=== PATIENT | female | born 1985 | race Caucasian/White ===

== ENCOUNTER 2022-02-23 17:38 | Emergency (ER) | payer MEDICAID, SELFPAY ==
[2022-02-23] VITALS (14 sets, daily range): BP systolic 108–129; BP diastolic 74–88; PULSE 73–86; RESP 14–22; TEMP 36.6–36.9; O2SAT 95–99; BMI 40.2
--- NOTE | 2022-02-23 17:33 | ECG_ITS ---
APPROVED REPORT Exam: Resting ECG HR:88 bpm ECG Measurements Heart Rate 88 AXES TX 151 P 22 QRSd 90 QRS 9 QT 354 T 7 QTc 399 Conclusion SINUS RHYTHM POSSIBLE RIGHT VENTRICULAR CONDUCTION DELAY [RSR (QR) IN V1/V2] BORDERLINE ECG UNCONFIRMED REPORT Electronically signed by : Abraham Babcock MD 02/24/2022 21:33:56
--- NOTE | 2022-02-23 18:03 | XR_ITS ---
PROCEDURE INFORMATION: Exam: XR Chest Exam date and time: 02/23/2022 6:54 PM Age: 36 years old Clinical indication: Patient HX: Nausea and vomiting since Monday. ; Additional info: Chest pain TECHNIQUE: Imaging protocol: Radiologic exam of the chest. Views: 1 view. COMPARISON: No relevant prior studies available. FINDINGS: Lungs: No acute airspace consolidation. No appreciable pulmonary edema. Pleural spaces: No pleural effusion. No pneumothorax. Heart/Mediastinum: Cardiomediastinal silouhette is within normal limits. Bones/joints: No evidence of acute osseous abnormality. IMPRESSION: No acute findings.
--- NOTE | 2022-02-23 18:11 | PC.NURSE ---
is ordering a CT scan due to pt DUNN. wants the pt to stay in the ER until completed and resulted. Radha aware of new order for pt and plan
[2022-02-23 18:12] LABS: Chloride 102 mmol/L (98-107); Potassium 3.7 mmoL/L (3.5-5.1); Sodium 136 mmol/L (136-145)
[2022-02-23 18:15] LABS: Anion Gap 13.7 mEq/L (5-15); Blood Urea Nitrogen 13 mg/dl (7-17); Calcium 9.3 mg/dl (8.4-10.2); Carbon Dioxide 24 mmol/L (22.0-30.0); Creatinine Clearance Estimated 136 mL/min (50-200); Estimated Glomerular Filt Rate 71 ml/min (>60); GFR (African American) 86 ML/MIN (>60); Glucose 90 mg/dl (74-100)
[2022-02-23 18:30] LABS: Basophils # 0.1 K/mm3 (0-0.2); Basophils % 0.8 % (0.1-2.0); Eosinophils # 0.3 K/mm3 (0.0-0.4); Eosinophils % 2.1 % (0.1-12.0); Hematocrit 41.9 % (37.0-47.0); Hemoglobin 13.6 g/dL (12.2-16.2); Lymphocytes # 1.9 K/mm3 (0.7-4.5); Lymphocytes % 15.2 % (10-50); Mean Corpuscular HGB Conc 32.3 g/dL (31.8-35.4); Mean Corpuscular Hemoglobin 27.7 pg (27.0-31.2); Mean Corpuscular Volume 85.7 fl (81-99); Mean Platelet Volume 8.6 fl (7.4-10.4); Monocytes # 0.4 K/mm3 (0.1-1.0); Neutrophils % 78.9 % (37.0-80.0); Platelet Count 405 K/mm3 (142-424); Red Blood Count 4.89 M/mm3 (4.20-5.40); Red Cell Distribution Width 14.5 % (11.5-17.5); White Blood Count 12.7 K/mm3 (4.8-10.8)
[2022-02-23 18:40] LABS: Troponin I < 0.01 ng/ml (0.00-0.034)
--- NOTE | 2022-02-23 19:43 | CT_ITS ---
PROCEDURE INFORMATION: Exam: CT Abdomen And Pelvis With Contrast Exam date and time: 02/23/2022 9:26 PM Age: 36 years old Clinical indication: Abdominal pain; Localized; Upper; Additional info: Upper abdo pain TECHNIQUE: Imaging protocol: Computed tomography of the abdomen and pelvis with contrast. Radiation optimization: All CT scans at this facility use at least one of these dose optimization techniques: automated exposure control; mA and/or kV adjustment per patient size (includes targeted exams where dose is matched to clinical indication); or iterative reconstruction. Contrast material: ISOVUE; Contrast volume: 75 ml; Contrast route: IV; COMPARISON: CR XR CHEST PORTABLE 02/23/2022 6:54 PM FINDINGS: Liver: Unremarkable. Gallbladder and bile ducts: Mild intra-hepatic and extra-hepatic biliary ductal dilatation. Gallbladder is modestly distended and contains multiple gallstones. No gallbladder wall thickening or pericholecystic fluid. Pancreas: No inflammatory changes or pancreatic ductal dilation. Spleen: Unremarkable. Adrenal glands: Unremarkable. Kidneys and ureters: No renal or ureteral stones. No hydronephrosis. Stomach and bowel: Colonic diverticulosis without evidence of acute diverticulitis. Appendix: Appendix is visualized and is normal. Intraperitoneal space: No free fluid. No pneumoperitoneum. Vasculature: Unremarkable. Lymph nodes: Unremarkable. Urinary bladder: Unremarkable. Reproductive: Unremarkable. Bones/joints: No acute osseous abnormality. Soft tissues: Unremarkable. IMPRESSION: 1. Mild intra-hepatic and extra-hepatic biliary ductal dilatation. No evidence of obstructing stone or soft tissue mass, noting limited sensitivity of CT in detecting noncalcified gallstones and small ductal neoplasms. Please correlate with blood chemistry. 2. Cholelithiasis without evidence of acute cholecystitis. 3. Colonic diverticulosis without evidence of acute diverticulitis.
--- NOTE | 2022-02-23 19:46 | HMH.EDGENADL ---
Discharge Plan Disposition Patient Disposition: Still a Patient Condition: Good Referrals Follow up/Referrals: Provider,MD Herminio [Primary Care Provider] - See instructions Clinical Impressions Clinical Impression: Acute epigastric pain, Food intolerance, Vomiting, Cholelithiasis Instructions Patient Instructions: DI for Gallstones Discharge ED Provider: Shoaib Clinton Adult HPI <Shoaib Clinton MD - Last Filed: 02/23/22 19:58> General Chief complaint: Chest Pain Stated complaint: chest pain Time Seen by Provider: 02/23/22 19:36 Mode of Arrival: Ambulatory Source of Information: Patient Limitations: No Limitations Description of Symptoms (Recalled from ER Triage Doc. by RN): c/o upper gastric/chest pain with vomiting and nausea since Monday. History of Present Illness HPI narrative: Complains of epigastric pain and food intolerance since Monday morning. She states that whenever she tries to eat solid foods since then she gets a discomfort in her epigastric area described as a squeezing or pressure that radiates up into her chest. The discomfort persists until she vomits. She last had crackers this morning at about 8 AM and a drink of water. She said that did not come back up. She drank liquids until about 2 PM without any vomiting. At 2 PM the pressure in her epigastrium started again and she has not tried to eat or drink since then. States that she has had problems with some epigastric discomfort after eating ever since she had a child 2 years ago, but this is much worse. She has had a prior section, no other abdominal surgeries. She has never had any gallbladder issues or tests. Related Data Allergies Allergy/AdvReac Type Severity Reaction Status Date / Time No Known Allergies Allergy Verified 02/23/22 17:58 PFSH <Shoaib Clinton MD - Last Filed: 02/23/22 19:58> [facility] Disclaimer: The information contained in this section may have been updated after the patient was seen, as this information can be updated by other users. Social History Smoking Status: Never smoker alcohol intake: never current occupational status: employed Travel in the last 8 weeks: None <Shoaib Clinton MD - Last Filed: 02/23/22 19:58> ROS Obtained: Yes Systems reviewed as appropriate & no additional complaints except as documented Constitutional Constitutional: Denies fever(s), Denies headache(s) and Denies weakness ENT Ears, Nose, Mouth, and Throat: Denies headache(s), Denies nasal discharge and Denies sore throat Cardiovascular Cardiovascular: Reports chest pain Respiratory Respiratory: Denies shortness of breath and Denies cough Gastrointestinal Gastrointestingal: Reports abdominal pain, early satiety, nausea and vomiting; Denies constipation or diarrhea Genitourinary Female Genitourinary: Denies difficulty voiding, Denies dysuria and Denies flank pain Musculoskeletal Musculoskeletal: Denies numbness Neurologic Neurologic: Denies headache(s), Denies numbness and Denies weakness Physical Exam <Shoaib Clinton MD - Last Filed: 02/23/22 19:58> General General appearance: alert and in no apparent distress Head Head exam: atraumatic and normocephalic Eye Eye exam: Present normal appearance and EOMI ENT ENT exam: Present mucous membranes moist Neck Neck exam: Present normal inspection and trachea midline Chest Chest inspection: Present normal inspection and symmetric chest wall rise Respiratory Respiratory exam: Present normal lung sounds bilaterally; Absent respiratory distress Cardiovascular Cardiovascular exam: Present regular rate, normal rhythm and normal heart sounds Abdominal Exam Abdominal exam: Present soft, tenderness and normal bowel sounds; Absent distention, guarding, rebound or rigidity Abdominal tenderness: Present epigastrium Extremities Exam Extremities exam: Present normal inspection Neurological Exam Neurological exam: Present alert and oriented X3 Psychiatric Psychiatric
[2022-02-23 19:59] LABS: Alanine Aminotransferase 107 U/L (12-78); Alkaline Phosphatase 157 U/L (38-126); Aspartate Amino Transferase 111 U/L (14-36); Bilirubin,Direct 1.1 mg/dl (0.0-0.4); Bilirubin,Indirect 0.5 mg/dL (0.0-0.9); Bilirubin,Total 1.6 mg/dl (0.2-1.3); Bilirubin,Unconjugated 0.5 mg/dL (0.0-1.1); Lipase 45 U/L (23-300)
[2022-02-23 20:00] LABS: Albumin Level 4.5 g/dl (3.5-5.0); Total Protein,Serum 8.4 g/dl (6.3-8.2)
[2022-02-23 21:07] LABS: HCG Qualitative, Serum Negative (Negative)
--- NOTE | 2022-02-23 21:58 | PC.NURSE ---
ER speaking with Dr Mccray at this time
[2022-02-23 22:05] LABS: Troponin I < 0.01 ng/ml (0.00-0.034)
== END 2022-02-23 22:58 | disposition still patient (30) ==
PROVIDERS: Emergency Provider Emergency Medicine
DX: K80.20 Calculus of gallbladder without cholecystitis without obstruction (principal); K90.49 Malabsorption due to intolerance, not elsewhere classified; R10.13 Epigastric pain; R11.10 Vomiting, unspecified
CPT/HCPCS: 71045; 74177; 80048; 80076; 83690; 84484; 84703; 85025; 93005; 96374; 96375; 99285; J2405; Q9967

== ENCOUNTER → 2022-03-16 09:35 | Outpatient (CLI) | payer MEDICAID, SELFPAY ==
[2022-03-16 10:33] LABS: Urine Pregnancy, HCG Qual. Negative (Negative)
[2022-03-16 10:34] LABS: Basophils # 0.1 K/mm3 (0-0.2); Basophils % 1.1 % (0.1-2.0); Eosinophils # 0.4 K/mm3 (0.0-0.4); Eosinophils % 4.7 % (0.1-12.0); Hematocrit 37.5 % (37.0-47.0); Hemoglobin 12.3 g/dL (12.2-16.2); Lymphocytes # 2.1 K/mm3 (0.7-4.5); Mean Corpuscular HGB Conc 32.9 g/dL (31.8-35.4); Mean Corpuscular Hemoglobin 27.8 pg (27.0-31.2); Mean Corpuscular Volume 84.6 fl (81-99); Monocytes # 0.3 K/mm3 (0.1-1.0); Monocytes % 3.7 % (1.7-9.3); Neutrophils # 5.7 K/mm3 (1.8-7.8); Neutrophils % 66.5 % (37.0-80.0); Platelet Count 332 K/mm3 (142-424); Red Blood Count 4.43 M/mm3 (4.20-5.40); Red Cell Distribution Width 14.9 % (11.5-17.5); White Blood Count 8.6 K/mm3 (4.8-10.8)
[2022-03-16 11:15] LABS: Chloride 103 mmol/L (98-107); Potassium 4.7 mmoL/L (3.5-5.1); Sodium 138 mmol/L (136-145)
[2022-03-16 11:18] LABS: Alanine Aminotransferase 18 U/L (12-78); Albumin/Globulin Ratio 1.4 (1.1-1.8); Alkaline Phosphatase 79 U/L (38-126); Anion Gap 12.7 mEq/L (5-15); Aspartate Amino Transferase 21 U/L (14-36); Bilirubin,Total 0.2 mg/dl (0.2-1.3); Blood Urea Nitrogen 13 mg/dl (7-17); Calcium 9.1 mg/dl (8.4-10.2); Carbon Dioxide 27 mmol/L (22.0-30.0); Estimated Glomerular Filt Rate 71 ml/min (>60); GFR (African American) 86 ML/MIN (>60); Globulin 2.9 g/dL (1.3-3.2); Glucose 92 mg/dl (74-100); Total Protein,Serum 6.9 g/dl (6.3-8.2)
== END ==
PROVIDERS: PCP Pediatrics; Visit Provider Surgery
DX: Z01.812 Encounter for preprocedural laboratory examination (principal); K80.20 Calculus of gallbladder without cholecystitis without obstruction
CPT/HCPCS: 36415; 80053; 81025; 85025

== ENCOUNTER 2022-04-14 07:39 | Day surgery (SDC) | payer MEDICAID, SELFPAY ==
[2022-04-12 11:58] VITALS: BMI 40.4
[2022-04-14] VITALS (15 sets, daily range): BP systolic 117–149; BP diastolic 66–89; PULSE 66–93; RESP 15–24; TEMP 36.1–43; O2SAT 92–98
[2022-04-14 07:57] LABS: Urine Pregnancy, HCG Qual. Negative (Negative)
--- NOTE | 2022-04-14 10:40 | EXP.OP.NOTE ---
Date of procedure: 04/14/22 Pre-op Diagnosis:: Symptomatic cholelithiasis Post-op Diagnosis:: Chronic calculus cholecystitis Procedure performed:: Laparoscopic cholecystectomy Surgeon:: Zaheer Martinez MD Anesthesia: GETA Estimated blood loss (mL): 200 Operative findings:: Significant number of stones throughout gallbladder lumen Severe pericholecystic fat stranding Subcutaneous tissue/musculature rent at subxiphoid site secondary to size of gallbladder with impacted stones (site of majority of operative blood loss) Operative note:: After informed consent was obtained, the patient was taken to the operating room and placed in the supine position. General anesthesia was induced and the abdomen was prepped and draped in a sterile fashion. After infiltration with local anesthetic an infraumbilical incision was made. A Veress needle was placed in position. The abdomen was insufflated. A 5 mm optical trocar was placed in position. Under direct visualization, a 12 mm trocar was placed in the subxiphoid position and 2 additional 5 mm trocars were placed in the right upper quadrant. The gallbladder was elevated up and over the liver margin. The tissue around the cystic duct was carefully dissected. 3 clips were placed proximally and the duct was transected with harmonic farida. Harmonic farida were then utilized to dissect the gallbladder away from the liver margin with careful attention to the control of the cystic artery. The gallbladder was placed in a retrieval bag and removed through the subxiphoid trocar site. The right upper quadrant was thoroughly irrigated. No active bleeding or bile leak was noted. Evaluation of the subxiphoid site revealed significant ongoing blood loss secondary to subcutaneous tissue and musculature rent. Mass closure with a combination of 0 Ethibond, 0 Prolene, and #1 Prolene was completed. No ongoing blood loss was noted once this closure was completed. The remaining trocars were removed. All wounds were irrigated and skin was closed with 4-0 Monocryl in a subcuticular fashion. Steri-Strips were applied. The patient's anesthetic agents were reversed and extubation was completed prior to transfer to recovery in stable condition. Condition: stable Disposition: PACU Specimens:: Gallbladder and contents Complications:: No immediate
--- NOTE | 2022-04-14 10:50 | P.PN_ITS ---
[facility] Disclaimer: The information contained in this section may have been updated after the patient was seen, as this information can be updated by other users. Medical History History of anxiety Surgical History History of section History of wisdom tooth extraction Family History Other No significant family history Social History (Updated 04/14/22 @ 08:09 by Sarah Delgado RN) Smoking Status: Former smoker years smoked: 3 second hand exposure: No alcohol intake: current substance use type: denies use current occupational status: unemployed Travel in the last 8 weeks: None [facility] Anesthesia Checklist Patient Identification Patient Identification: Arm Band and Family Structural Data Admitted From: Home Planned Operative Procedure/s: Lap Su Verified Documents: Surgical Consent and History and Physical NPO Status Verified Time NPO: 00:00 Additional verifications Anesthesia Reactions: No Hx Blood Transfusions: No Blood Transfusion Reaction: No Cephalosporin Allergy: No Previous Colonoscopy: No Airway Assessment C-Spine Mobility Assessed: Yes TMJ Mobility Assessed: Yes Dentition: Good Dentition Neurological Assessment Level of Consciousness: Awake, Alert, Appropriate and Follows Commands Hx Seizures: No Numbness or tingling in extremities: No Anesthesia Plan Anesthesia Risk discussed: Yes ASA Class: I Anesthesia Type: General
--- NOTE | 2022-04-14 10:53 | EXP.ANES.I ---
[facility] Anesthesia Record Part I Anesthesia Record I Intake, IV Amount: 1,000 Estimated blood loss (mL): 220 Urine output (mL): 0 Blood Products used (#): none Blood Pressure: 117/71 SaO2: 94 Pulse Rate: 90 Respiratory Rate: 24 Temperature: 97.6 F Patient is:: Drowsy and Stable Stable to PACU at:: 10:45
[2022-04-14 12:59] LABS: Hematocrit 34.3 % (37.0-47.0); Hemoglobin 11.4 g/dL (12.2-16.2)
--- NOTE | 2022-04-14 13:21 | PC.NURSE ---
Dr. Martinez notified of H&H results at 1300. No new orders at this time
--- NOTE | 2022-04-15 07:05 | EXP.ANES.II ---
[facility] Anesthesia Record Part II Anesthesia Record Part II Discharge Time: 11:15 Destination: Surgical Day Care (OP Surgery) PACU nurse assessment reviewed?: Yes Patient Condition:: Good Anesthesia Complications:: None Swallowing reflex intact?: Yes Cyanosis?: No Blood Pressure: 128/74 Pulse Rate: 83 Temperature: 97.1 F Mental Status: Alert & Oriented Pain level:: 0 Nausea and/or vomitting:: None Intake, IV Amount: 0
[2022-04-15 07:06] VITALS: BP 128/74; PULSE 83; TEMP 36.2
== END 2022-04-14 13:15 | disposition home or self-care (01) ==
PROVIDERS: PCP Pediatrics; Visit Provider Surgery
PROC: 0FT44ZZ Resection of Gallbladder, Percutaneous Endoscopic Approach (ICD-10-PCS; CPT 47562; principal; 2022-04-14 09:15)
DX: K80.10 Calculus of gallbladder with chronic cholecystitis without obstruction (principal)
CPT/HCPCS: 47562; 36415; 81025; 85014; 85018; 86850; 96374; J2405

== ENCOUNTER → 2022-04-15 08:38 | Outpatient (CLI) | payer MEDICAID, SELFPAY ==
[2022-04-15 09:14] LABS: Hematocrit 31.7 % (37.0-47.0); Hemoglobin 10.6 g/dL (12.2-16.2)
== END ==
PROVIDERS: PCP Pediatrics; Visit Provider Surgery
DX: K80.20 Calculus of gallbladder without cholecystitis without obstruction (principal)
CPT/HCPCS: 85014; 85018

== ENCOUNTER → 2022-04-16 11:01 | Outpatient (CLI) | payer MEDICAID, SELFPAY ==
[2022-04-16 11:54] LABS: Hematocrit 30.1 % (37.0-47.0); Hemoglobin 10.1 g/dL (12.2-16.2)
== END ==
PROVIDERS: PCP Family Medicine; Visit Provider Surgery
DX: K80.20 Calculus of gallbladder without cholecystitis without obstruction (principal)
CPT/HCPCS: 36415; 85014; 85018